=== PATIENT | male | born 1965 | race Caucasian/White ===

== ENCOUNTER 2016-11-30 16:00 | Outpatient (CLI) | payer BC ==
[~2016-11-30 16:00] MED LIST: ATEN50TA PO; MTF500T PO; atenolol
--- OUTSIDE RECORDS SUMMARY | 2016-11-30 16:09 | XMS REPORT | Continuity of Care Document ---
Author Author [facility] Organization [facility] Address Unknown Phone Unavailable Allergies Active Description Code Type Severity Reaction Onset Reported/Identified Relationship to Patient Clinical Status Yes No Known Drug Allergies [id number] Drug Allergy Unknown N/ A 07/23/2012 Medications Problems Date Dx Coded Attending Type Code Diagnosis Diagnosed By 08/08/2012 Ot 327.23 03/31/2014 MERRILL HAYES, DEBBY Altman Ot 211.3 03/31/2014 MERRILL HAYES, DEBBY Altman Ot 211.4 03/31/2014 MERRILL HAYES, DEBBY Altman Ot 401.9 03/31/2014 MERRILL HAYES, DEBBY Altman Ot V15.81 03/31/2014 MERRILL AHYES, DEBBY Altman Ot V76.51 11/03/2014 Ot 786.50 06/12/2015 MERRILL HAYES, DEBBY Altman Ot V72.84 06/12/2015 MERRILL HAYES, DEBBY Altman Ot V72.84 06/17/2015 MERRILL HAYES, DEBBY Altman Ot V72.84 06/17/2015 MERRILL HAYES, DEBBY Altman Ot V72.84 08/08/2015 MERRILL HAYES, DEBBY Altman Ot V72.84 08/08/2015 MERRILL HAYES, DEBBY Altman Ot V72.84 Procedures Results Encounters ACCT No. Visit Date/Time Discharge Status Pt. Type Provider Facility Loc./Unit Complaint [id number] 03/31/2014 07:21:00 2013 10:15:00 DIS Outpatient DEBBY MOMIN MD [facility] [id number] 03/25/2014 07:13:00 2013 23:59:59 CLS Outpatient DEBBY MOMIN MD [facility] PREOP [id number] 03/12/2014 07:19:00 2013 23:59:59 CLS Outpatient DEBBY MOMIN MD [facility] PREOP [id number] 08/07/2012 21:10:00 Document Registration [id number] 07/23/2012 06:11:00 Document Registration
== END 2016-11-30 16:35 | disposition home or self-care (01) ==
LOC: SLEEP 16:00
PROVIDERS: ATTEND Internal Medicine
DX: G47.33 Obstructive sleep apnea (adult) (pediatric) (principal); I10 Essential (primary) hypertension

== ENCOUNTER → 2019-08-04 | Outpatient (CLI) | payer OTHER ==
--- NOTE | 2019-08-04 16:49 | Diagnostic Imaging Report ---
EXAMINATION: Magnetic resonance imaging of the right knee without intravenous contrast. DATE: August 04, 2019. COMPARISON: MRI right knee of October 26, 2008. INDICATION: 53-year-old male, injury to knee 1.5 months ago. Persistent knee pain and swelling. History of prior arthroscopy. TECHNIQUE: Multiplanar/multisequence noncontrast enhanced MR imaging was accomplished. FINDINGS: MENISCI: The medial meniscus is intact. The lateral meniscus is intact. LIGAMENTS AND TENDONS: The anterior and posterior cruciate ligaments are intact. The medial collateral ligament is intact. The iliotibial band, mid third lateral capsular ligament, fibular collateral ligament, biceps femoris tendon, and conjoined tendon are intact. The quadriceps tendon and patella ligament are intact. JOINT: There is a full-thickness cartilage fissure involving the median patellar ridge as well as additional fissuring of the lateral patellar facet cartilage and lateral femoral trochlea. There is surface irregularity of the cartilage of the median patellar ridge. There are broad areas of approximately 50% thinning of the medial compartment cartilage. The lateral compartment cartilage appears grossly intact. There is a moderate knee joint effusion without identified intra-articular body or prominent synovitis. BONE: There is unremarkable bone marrow signal. Specifically, negative for fracture, osteomyelitis, osteonecrosis, or marrow replacing process. BURSAE AND SOFT TISSUES: There is no Macias's cyst. There is nonspecific prepatellar subcutaneous edema. IMPRESSION: 1. Grossly intact medial and lateral meniscus. 2. Intact anterior and posterior cruciate ligaments. Additional ligaments and tendons are intact. 3. Moderate medial and patellofemoral compartment osteoarthritis with moderate knee joint effusion. No prominent synovitis or identified intra-articular body. 4. No acute fracture, bone contusion, or evidence of osteonecrosis. Dictated by: Dictated on workstation # [id number]
== END ==
LOC: RAD 13:56
PROVIDERS: ATTEND Orthopaedic Surgery
DX: M17.11 Unilateral primary osteoarthritis, right knee (principal); M25.461 Effusion, right knee; M23.261 Derangement of other lateral meniscus due to old tear or injury, right knee
CPT/HCPCS: 73721

== ENCOUNTER → 2020-03-26 | Outpatient (CLI) | payer BC, OTHER ==
--- NOTE | 2020-03-26 08:58 | Diagnostic Imaging Report ---
PROCEDURE: US Gallbladder. TECHNIQUE: Multiple real-time grayscale images were obtained over the right upper quadrant in various projections. INDICATION: Right upper quadrant pain. FINDINGS: There is a mild hepatomegaly with mild fatty change of the liver. Liver measures 19 cm in long axis. The gallbladder appears normal without evidence of gallstones or wall thickening. The intrahepatic radicles are not dilated. Common duct is not well-visualized due to fatty liver changes and bowel gas. Portal vein shows normal flow with Doppler sampling. Pancreas is obscured by bowel gas as is the aorta. Vena cava is normal. Right kidney measures 12.3 x 5.7 cm and appears normal. There is no ascites. IMPRESSION: Hepatomegaly with hepatic steatosis. Gallbladder appears normal. Dictated by: Dictated on workstation # [id number]
== END ==
LOC: RAD 06:34
PROVIDERS: ATTEND Internal Medicine
DX: K76.0 Fatty (change of) liver, not elsewhere classified (principal)
CPT/HCPCS: 76705

== ENCOUNTER → 2020-04-09 | Outpatient (CLI) | payer BC ==
[~2020-04-09] MED LIST changes: +CATHETER FLUSH 10 ML SYR IV PRN
--- NOTE | 2020-04-09 12:53 | Diagnostic Imaging Report ---
Indication: Right upper quadrant abdominal pain. Patient was administered 5.3 mCi technetium 99m Choletec intravenously and imaging of the abdomen was performed. At 30 minutes patient ingested 8 ounces of Ensure and a gallbladder ejection fraction was calculated. Patient denied any discomfort during the exam. There is homogeneous uptake of activity by the liver. Prompt excretion of activity into the common duct and gallbladder is noted. There is normal passage of activity into the small bowel. Gallbladder ejection fraction is normal at 42%. IMPRESSION: Normal HIDA scan and gallbladder ejection fraction. Dictated by: Dictated on workstation # [id number]
== END ==
LOC: CARD 09:33
PROVIDERS: ATTEND Internal Medicine
DX: R10.11 Right upper quadrant pain (principal)
CPT/HCPCS: 78227; A9537

== ENCOUNTER → 2021-10-13 | Outpatient (CLI) | payer BC ==
[~2021-10-13] VITALS: Ht 172.7 cm; Wt 109.0 kg
[~2021-10-13] MED LIST changes: +ACETAMINOPHEN 500 MG TAB (TYLENOL) PO PRN; +BAMLANIVIMAB 700 MG/ETESEVIMAB 1,400 MG IN NS IV ONE; -CATHETER FLUSH 10 ML SYR IV PRN; +EPINEPHrine INJECTION 1 MG/ML AMP IM PRN; +ONDANSETRON 4 MG/2 ML (SDV) Z0FRAN IV PRN; +diphenhydrAMINE 50 MG/ML INJ (BENADRYL) IV PRN
[2021-10-13 09:23] VITALS: BP 145/83
[2021-10-13 10:40] VITALS: BP 142/89
== END ==
LOC: INFUSION 09:14
PROVIDERS: ATTEND Nurse Practitioner Family
DX: U07.1 COVID-19 (principal)